=== PATIENT | female | born 1975 | race Caucasian/White ===

== ENCOUNTER 2016-04-19 07:51 | Emergency (ER) | payer MEDICAID ==
[~2016-04-19] VITALS: Ht 160 cm; Wt 75.0 kg
[~2016-04-19 07:51] MED LIST: ACET1TAB40 PO; ACYC800T57 PO; PRED20TA PO
[2016-04-19 07:55] VITALS: Ht 160 cm; Wt 75.0 kg
[2016-04-19] MEDS ORDERED: KETOROLAC 30 MG INJ IM STA (09:19)
[2016-04-19 09:24] LABS: URINE BLOOD (Dip) POC Trace-intact (NEGATIVE)
--- NOTE | 2016-04-19 09:40 | RADRPT ---
PROCEDURE: XR Chest. CLINICAL INDICATION: Upper back pain. TECHNIQUE: Single frontal view of the chest was obtained COMPARISON: No. FINDINGS: The soft tissues are normal. The bony elements are normal. The heart, left side aorta, cardiomedias tinal silhouette, pulmonary vasculature and hilar structures are normal. The lungs are clear. The co stophrenic angles are normal. Small degenerative osteophytes might be present in the thoracic spine and not visualized in the AP view. IMPRESSION: 1. Normal chest x-ray. 2. A lateral view could be considered for evaluation of the thoracic spine. RPTAT:AAJJ Physician Michael Date Time Electronically viewed and signed by Physician Michael on 04/19/2016 09:39 /
--- NOTE | 2016-04-19 09:52 | ERD ---
ER Documentation Chief Complaint Date/Time DATE: 04/19/16 TIME: 09:47 Chief Complaint PT HAS BACK PAIN HPI This is a 41-year-old female presenting to the emergency department for right- sided upper back pain 1 week. Pain is nonradiating. No chest pain, shortness of breath or difficulty breathing. No heart palpitations. No wheezing or cough. No recent fall or injury. Patient states she did lift her son last week who is about 70 kg and states this may have been the cause of her pain. No abdominal pain, nausea, vomiting or diarrhea. No fevers or chills. Denies sore throat or difficulty swallowing. Denies shoulder pain or limited mobility. No swelling or erythema. No neck pain or neck stiffness. No neuro deficits. No change in mood or behavior. No visual changes. No weakness or fatigue. No fecal or urinary incontinence. ROS All systems reviewed and are negative except as per history of present illness. Medications Home Meds Active Scripts Nitrofurantoin Monohyd Macrocr* (Macrobid*) 100 Mg Capsr, 100 MG PO BID for 5 Days, CAP Prov:MUMTAZ EUBANKS NP 04/19/16 Ibuprofen* (Motrin*) 800 Mg Tab, 800 MG PO Q6, #15 TAB Prov:MUMTAZ EUBANKS NP 04/19/16 Prednisone* (Prednisone*) 20 Mg Tab, 40 MG PO DAILY for 4 Days, TAB Prov:TAMIKA JOHANSEN MD 03/27/15 Acetaminophen-Codeine* (Acetaminophen-Cod #3*) 300-30 Mg Tab, 1 TAB PO Q4H Y for PAIN, #16 TAB Prov:TAMIKA JOHANSEN MD 03/27/15 Acyclovir* (Zovirax*) 800 Mg Tablet, 800 MG PO 5 TIMES DAILY for 7 Days, TAB Prov:TAMIKA JOHANSEN MD 03/27/15 Allergies Allergies: Coded Allergies: No Known Drug Allergy (Verified Allergy, Unknown, 04/19/16) Uncoded Allergies: POLLEN (Allergy, Mild, 12/06/11) PMhx/Soc Medical and Surgical Hx: pt denies Medical Hx History of Surgery: Yes (4 C SECTION) Anesthesia Reaction: No Hx Neurological Disorder: No Hx Respiratory Disorders: No Hx Cardiac Disorders: No Hx Psychiatric Problems: No Hx Miscellaneous Medical Probl: No Hx Alcohol Use: No Hx Substance Use: No Hx Tobacco Use: No Smoking Status: Never smoker Physical Exam Vitals Vital Signs Date Time Temp Pulse Resp B/P Pulse Ox O2 Delivery O2 Flow Rate FiO2 04/19/16 11:27 98.2 75 19 124/65 100 Room Air 04/19/16 07:55 98.1 70 18 134/73 99 Physical Exam Const: No acute distress, alert, talking in complete sentences. Head: Atraumatic Eyes: Normal Conjunctiva ENT: Normal External Ears, Nose and Mouth. Neck: Full range of motion..~ No meningismus. Resp: Clear to auscultation bilaterally Cardio: Regular rate and rhythm, no murmurs Abd: Soft, non tender, non distended. Normal bowel sounds Skin: No petechiae or rashes Back: No midline or flank tenderness Ext: No cyanosis, or edema. Full mobility to bilateral upper extremities. No swelling or erythema. Neur: Awake and alert Psych: Normal Mood and Affect Results 24 hrs Laboratory Tests Test 04/19/16 09:25 Bedside Urine Blood Trace-intact Bedside Urine Glucose (UA) Negative Bedside Urine Ketones (LAB) Negative Bedside Urine Leukocyte Esterase (L Trace Bedside Urine Nitrite (LAB) Negative Bedside Urine Protein (LAB) Negative Bedside Urine pH (LAB) 5.5 Current Medications Medications (Trade) Dose Ordered Sig/Candy Route PRN Reason Start Time Stop Time Status Last Admin Dose Admin Ketorolac Tromethamine (Toradol) 30 mg ONCE STAT IM 04/19/16 09:19 04/19/16 09:21 DC 04/19/16 09:26 Procedures/MDM ED COURSE: The patient was stable throughout ED course. I kept the patient and/or family informed of laboratory and diagnostic imaging results throughout the ED course. Toradol given Laboratory Urine dip trace leukocyte esterase, trace blood Urine negative Imaging Chest x-ray Patient: MIGUEL MYERS : 1975 Age: 41 Sex: F [id number] DOS: 04/19/16918 Ordering MD: MUMTAZ EUBANKS NP Location: [facility] Room/Bed: PROCEDURE: XR Chest. CLINICAL INDICATION: Upper back pain. TECHNIQUE: Single frontal view of the chest was obtained COMPARISON: No. FINDINGS: The soft tissues are normal. The bony elements are normal. The heart, left side aorta, cardiomediastinal silhouette, pulmonary vasculature and hilar structures are normal. The lungs are clear. The costophrenic angles are normal. Small degenerative osteophytes might be present in the thoracic spine and not visualized in the AP view. IMPRESSION: 1. Normal chest x-ray. 2. A lateral view could be considered for evaluation of the thoracic spine. EKG: As interpreted by Dr. Crsos Rate/Rhythm: Normal sinus rhythm with heart rate 61 bpm QRS, ST, T-waves: No changes consistent w/ acute ischemia Impression: No evidence of ischemia or arrhythmia MDM: This is a 41-year-old female presenting to the emergency department for mid / right sided upper back pain 1 week. Toradol given while in the ED. Chest x- ray is unremarkable as reviewed by radiologist. EKG shows normal sinus rhythm with heart rate 61 bpm as interpreted by myself and Dr. Cross. Patient states pain has improved significantly after Toradol given. Lung exam is unremarkable. Extremities exam is unremarkable. No skin changes. No signs or symptoms of respiratory distress. No neuro deficits. No urinary or fecal incontinence. Urine is positive for trace leukocyte esterase and trace blood. No fever chills. Low suspicion for acute LA, septic arthritis, acute fracture, cauda equina, osteomyelitis,or spinal epidural abscess. Differential diagnosis includes but not limited to radiculopathy, spinal stenosis, osteoarthritis, polymyalgia rheumatica or ankylosing spondylosis. Secondary diagnosis is UTI. Patient is appropriate for outpatient management will be given prescription for ibuprofen. Instructed patient to follow-up with primary care provider in the next 2-3 days for reassessment. Return to ED for any high fever, chest pain, difficulty breathing, shortness breath, wheezing, vomiting, diarrhea, abdominal pain or any new or worsening symptoms. Patient verbalizes understanding. All questions answered at discharge. Departure Diagnosis: Primary Impression: Back pain Back pain location: back pain in other location Chronicity: acute Qualified Code: M54.9 - Other acute back pain Additional Impression: UTI (urinary tract infection) Urinary tract infection type: site unspecified Hematuria presence: with hematuria Qualified Code: N39.0 - Urinary tract infection with hematuria, site unspecified Condition: Stable MUMTAZ EUBANKS NP Apr 19, 2016 09:52
[2016-04-19] MEDS ORDERED: IBUP800T25 PO (11:18)
[2016-04-19] MEDS ORDERED: NITR-58 PO (11:19)
[2016-04-19 11:27] VITALS: BP 124/65; PULSE 75; RESP 19; TEMP 98.2
== END 2016-04-19 11:27 | disposition home or self-care (01) ==
LOC: FTE 07:51
DX: M54.6 Pain in thoracic spine (principal); N39.0 Urinary tract infection, site not specified
CPT/HCPCS: 71010; 81003; 93005; 96372; J1885; Z7502

== ENCOUNTER 2018-09-14 19:24 | Emergency (ER) | payer MEDICAID ==
[~2018-09-14] VITALS: Ht 157.5 cm; Wt 72.4 kg
[~2018-09-14 19:24] MED LIST changes: +ACYC800T5 PO; -ACYC800T57 PO; +IBUP800T48 PO; +NITR-58 PO
[2018-09-14 19:29] VITALS: Ht 157.5 cm; Wt 72.4 kg
--- NOTE | 2018-09-14 19:32 | EN ---
Date/Time of Note Date/Time of Note DATE: 09/14/18 TIME: 19:32 ER Progress Note [id number]-old female with nontraumatic right hand pain for the last 2 days. X-ray ordered. ED2 appropriate. Mild tenderness in the palm without deformities, warmth, erythema, signs of ischemia.. TAMIKA JOHANSEN MD Sep 14, 2018 19:32
[2018-09-14] MEDS ORDERED: IBUP-1542 PO (20:24)
--- NOTE | 2018-09-14 20:28 | ERD ---
ER Documentation Chief Complaint Chief Complaint HAND PAIN X2DAYS; NO KNOWN INJ HPI 43-presents with pain in the right palm for last 2 days. She denies any inciting events or history of trauma. She denies restricted range of motion, deficits, fevers. ROS All systems reviewed and are negative except as per history of present illness. Medications Home Meds Active Scripts Ibuprofen* (Motrin*) 600 Mg Tab, 600 MG PO Q6, #20 TAB Prov:TAMIKA JOHANSEN MD 09/14/18 Nitrofurantoin Monohyd Macrocr* (Macrobid*) 100 Mg Capsr, 100 MG PO BID for 5 Days, CAP Prov:MUMTAZ EUBANKS NP 04/19/16 Ibuprofen* (Motrin*) 800 Mg Tab, 800 MG PO Q6, #15 TAB Prov:MUMTAZ EUBANKS NP 04/19/16 Prednisone* (Prednisone*) 20 Mg Tab, 40 MG PO DAILY for 4 Days, TAB Prov:TAMIKA JOHANSEN MD 03/27/15 Acetaminophen-Codeine* (Acetaminophen-Cod #3*) 300-30 Mg Tab, 1 TAB PO Q4H PRN for PAIN, #16 TAB Prov:TAMIKA JOHANSEN MD 03/27/15 Acyclovir* (Zovirax*) 800 Mg Tablet, 800 MG PO 5 TIMES DAILY for 7 Days, TAB Prov:TAMIKA JOHANSEN MD 03/27/15 Allergies Allergies: Coded Allergies: No Known Drug Allergy (Verified Allergy, Unknown, 04/19/16) Uncoded Allergies: POLLEN (Allergy, Mild, 12/06/11) PMhx/Soc History of Surgery: Yes (4 C SECTION) Anesthesia Reaction: No Hx Neurological Disorder: No Hx Respiratory Disorders: No Hx Cardiac Disorders: No Hx Psychiatric Problems: No Hx Miscellaneous Medical Probl: No Hx Alcohol Use: No Hx Substance Use: No Hx Tobacco Use: No FmHx Family History: No diabetes, No coronary disease, No other Physical Exam Vitals Vital Signs Date Temp Pulse Resp B/P (MAP) Pulse Ox O2 O2 Flow FiO2 Time Delivery Rate 09/14/18 97.9 76 19 121/68 98 19:29 (85) Physical Exam Const: No acute distress Head: Atraumatic Eyes: Normal Conjunctiva ENT: Normal External Ears, Nose and Mouth. Neck: Full range of motion. No meningismus. Resp: Clear to auscultation bilaterally Cardio: Regular rate and rhythm, no murmurs Abd: Soft, non tender, non distended. Normal bowel sounds Skin: No petechiae or rashes Back: No midline or flank tenderness Ext: No cyanosis, or edema. Tenderness in the right palm in the proximal third interphalangeal area. No deformities, deficits, is range of motion, warmth, erythema. Neur: Awake and alert Psych: Normal Mood and Affect Results 24 hrs Current Medications Medications Dose Sig/Candy Start Time Status Last (Trade) Ordered Route PRN Stop Time Admin Dose Reason Admin Ibuprofen 600 mg ONCE ONCE 09/14/18 (Motrin) PO 20:30 09/14/18 20:31 Procedures/MDM X-ray right hand 3V interpreted by me: Scaphoid: Normal Bones: No fracture Joints: No dislocation Foreign body: None. Impression abnormal right hand x-ray Presents with right hand pain which is nontraumatic in the last 2 days without signs of fracture, dislocation, ischemia, deficits or infection. She may have musculoskeletal strain. Is no signs of compartment syndrome. She will be discharged home with ibuprofen, primary care follow-up and return precautions. Patient is placed in a right hand Rayshawn bandage was neurovascular intact after Rayshawn bandage. The patient was stable with no new complaints during the ER course. Clinically, there is no current evidence to suggest meningitis, sepsis, acute abdomen, pneumonia, stroke, acute coronary syndrome, pulmonary embolism, aortic dissection or any other emergent condition appearing to require further evaluation or hospitalization. Patient counseled regarding my diagnostic impression and care plan. Prior to discharge all questions answered. Pt agrees with treatment plan and understands strict return precautions. Pt is instructed to follow up with primary care provider within 24-48 hours. Precautionary instructions provided including instructions to return to the ER if not improving or for any worsening or changing symptoms or concerns. Disclaimer: Inadvertent spelling and grammatical errors are likely due to EHR /dictation software use and do not reflect on the overall quality of patient care. Also, please note that the electronic time recorded on this note does not necessarily reflect the actual time of the patient encounter. Departure Diagnosis: Primary Impression: Pain of hand Laterality: right Qualified Codes: M79.641 - Pain in right hand Condition: Stable Patient Instructions: Sprain Hand [facility] Usted se velasco hecho un examen mdico de control que le indica que no est en kelsey condicin que requiera tratamiento urgente en el Departamento de Emergencia. Un estudio ms profundo y el tratamiento de mtz condicin pueden esperar sin ningn riesgo hasta que usted sea atendida/o en el consultorio de mtz mdico o kelsey clnica. Es responsabilidad suya arreglar kelsey colleen para el seguimiento del marta. MANEJO DE CONDICIONES NO URGENTES EN EL FUTURO 1) Si usted tiene un mdico de atencin primaria: Usted debera llamar a mtz mdico de atencin primaria antes de venir al departamento de emergencia. Despus de las horas de consultorio, mtz doctor o mtz asociado/a est disponible por telfono. El mdico o enfermero de jose en el servicio telefnico puede asesorarle por misti medio para atender el problema, o marta contrario se puede programar kelsey colleen. 2) Si usted no tiene un mdico de atencin primaria: Llame al mdico o clnica de referencia que aparece abajo tony las horas de consultorio para hacer kelsey colleen para que le vean. CLINICAS: [facility] [phone] [facility] [phone] [facility] [phone] [address] [facility] [facility] [phone] [facility] [place] [id number] [phone] [facility]. [phone] [address] Additional Instructions: X-ray normal. Examines normal hoy. Cheque otro vez con mtz doctor primario en el proximo sanchez or regresa para mas o nueva simptomas. TAMIKA JOHANSEN MD Sep 14, 2018 20:28
[2018-09-14] MEDS ORDERED: IBUPROFEN 600 MG TAB PO ONE (20:30)
[2018-09-14 21:05] VITALS: BP 116/74; PULSE 65; RESP 18
== END 2018-09-14 21:06 | disposition home or self-care (01) ==
LOC: FTE 19:24
DX: M79.641 Pain in right hand (principal)
CPT/HCPCS: 73130; Z7502; Z7610